=== PATIENT | female | born 1935 | race Caucasian/White ===

== ENCOUNTER 2021-10-05 11:33 | Inpatient (IN) | payer MEDICARE, OTHER ==
[2021-10-05] MEDS ORDERED: SODIUM CHLORIDE 0.9% 500 ML 500 ML IV STA (11:56)
[2021-10-05] MEDS ORDERED: SODIUM CHLORIDE 0.9% 1,000 ML IV STA (11:56)
--- NOTE | 2021-10-05 11:59 | ED ---
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 No other reports of any other injury or concerns at this time MD Complaint: fall - Related Data Previous Rx's Medication Instructions Recorded Nystatin 100,000 Unit/gm Powd 1 applic TOPICAL BID 7 Days applic 12/04/14 [Mycostatin Powder] diphenhydrAMINE [Benadryl] 25 mg PO TID PRN 7 Days cap 12/04/14 predniSONE [Deltasone] 20 mg PO DAILY 5 Days tab 12/04/14 Allergies Allergy/AdvReac Type Severity Reaction Status Date / Time piperacillin sodium Allergy Rash/Hives Verified 10/05/21 15:30 [From Zosyn] tazobactam sodium Allergy Rash/Hives Verified 10/05/21 15:30 [From Zosyn] Review of Systems ROS Statement: Those systems with pertinent positive or pertinent negative responses have been documented in the HPI. ROS Other: All systems not noted in ROS Statement are negative. Limitations: ROS unobtainable due to patients medical condition Past Medical History Past Medical History: Memory Impairment Additional Past Medical History / Comment(s): ULCERS WHEN YOUNGER, FELL LAST FR K[place]LAY HAS RT ELBOW PAIN/CONTUSION BRUISING RT EYE, OSTEOPENIA History of Any Multi-Drug Resistant Organisms: None Reported Additional Past Surgical History / Comment(s): Brain sx X2 POOR HX TO WHY SHE HAD SX- HAD TO RELEARN TO WALK AND TALK, GETS UP WITH CANE Past Anesthesia/Blood Transfusion Reactions: No Reported Reaction Past Psychological History: No Psychological Hx Reported Past Alcohol Use History: None Reported Past Drug Use History: None Reported - Past Family History Father Additional Family Medical History / Comment(s): KILLED IN A WAR Mother History Unknown: Yes General Exam - General Exam Comments Initial Comments: This a well-developed well-nourished awake alert pleasantly confused female Azcuena Coma Scale is 14 Limitations: no limitations General appearance: alert, in no apparent distress Head exam: Present: atraumatic, normocephalic, normal inspection Eye exam: Present: normal appearance, PERRL, EOMI. Absent: scleral icterus, conjunctival injection, periorbital swelling ENT exam: Present: mucous membranes dry Neck exam: Present: normal inspection, full ROM, other (No stridor JVD or bruits). Absent: tenderness, meningismus, lymphadenopathy Respiratory exam: Present: normal lung sounds bilaterally. Absent: respiratory distress, wheezes, rales, rhonchi, stridor Cardiovascular Exam: Present: regular rate, normal rhythm, normal heart sounds. Absent: systolic murmur, diastolic murmur, rubs, gallop, clicks GI/Abdominal exam: Present: soft, normal bowel sounds. Absent: distended, tenderness, guarding, rebound, rigid Extremities exam: Present: full ROM, normal capillary refill, other (Contracture noted to the right upper extremity tenderness palpation of the right hip with no shortening or rotation some tenderness palpation over the left knee evidence of old ecchymosis anteriorly. No deformity no step-off or crepitation.). Absent: tenderness, pedal edema, joint swelling, calf tenderness Back exam: Present: normal inspection Neurological exam: Present: alert, altered, motor sensory deficit. Absent: CN II-XII intact Psychiatric exam: Present: normal affect, normal mood Skin exam: Present: warm, dry, intact, normal color. Absent: rash Course Vital Signs 10/05/21 11:37 Temperature 98.9 F Pulse Rate 97 Respiratory 18 Rate Blood Pressure 135/74 O2 Sat by Pulse 94 L Oximetry Medical Decision Making - Medical Decision Making Patient denies any chest pain and reevaluation she does have elevated troponin and some evidence dehydration she will be admitted case was discussed with Dr. Avalos covering Dr. Nash - Lab Data Result diagrams: 10/05/21 12:10 10/05/21 12:10 Lab Results 10/05/21 10/05/21 10/05/21 Range/Units 12:10 12:10 12:10 WBC 9.6 (3.8-10.6) k/uL RBC 4.41 (3.80-5.40) m/uL Hgb 13.6 (11.4-16.0) gm/dL Hct 42.0 (34.0-46.0) % MCV 95.2 (80.0-100.0) fL MCH 30.8 (25.0-35.0) pg MCHC 32.3 (31.0-37.0) g/dL RDW 13.3 (11.5-15.5) % Plt Count 202 (150-450) k/uL MPV 9.5 Neutrophils % 86 % Lymphocytes % 7 % Monocytes % 4 % Eosinophils % 1 % Basophils % 1 % Neutrophils # 8.3 H (1.3-7.7) k/uL Lymphocytes # 0.7 L (1.0-4.8) k/uL Monocytes # 0.4 (0-1.0) k/uL Eosinophils # 0.1 (0-0.7) k/uL Basophils # 0.1 (0-0.2) k/uL Sodium 136 L (137-145) mmol/L Potassium 4.0 (3.5-5.1) mmol/L Chloride 102 (98-107) mmol/L Carbon Dioxide 27 (22-30) mmol/L Anion Gap 7 mmol/L BUN 16 (7-17) mg/dL Creatinine 0.49 L (0.52-1.04) mg/dL Est GFR (CKD-EPI)AfAm >90 (>60 ml/min/1.73 sqM) Est GFR (CKD-EPI)NonAf 89 (>60 ml/min/1.73 sqM) Glucose 121 H (74-99) mg/dL Calcium 9.3 (8.4-10.2) mg/dL Magnesium 1.6 (1.6-2.3) mg/dL Total Bilirubin 0.8 (0.2-1.3) mg/dL AST 30 (14-36) U/L ALT 18 (4-34) U/L Alkaline Phosphatase 44 (38-126) U/L Creatine Kinase 64 (30-135) U/L Troponin I 0.054 H* (0.000-0.034) ng/mL Total Protein 7.5 (6.3-8.2) g/dL Albumin 4.4 (3.5-5.0) g/dL Urine Color Urine Appearance (Clear) Urine pH (5.0-8.0) Ur Specific Frederica (1.001-1.035) Urine Protein (Negative) Urine Glucose (UA) (Negative) Urine Ketones (Negative) Urine Blood (Negative) Urine Nitrite (Negative) Urine Bilirubin (Negative) Urine Urobilinogen (<2.0) mg/dL Ur Leukocyte Esterase (Negative) Influenza Type A (PCR) (Not Detectd) Influenza Type B (PCR) (Not Detectd) RSV (PCR) (Not Detectd) SARS-CoV-2 (PCR) (Not Detectd) 10/05/21 10/05/21 Range/Units 12:10 12:34 WBC (3.8-10.6) k/uL RBC (3.80-5.40) m/uL Hgb (11.4-16.0) gm/dL Hct (34.0-46.0) % MCV (80.0-100.0) fL MCH (25.0-35.0) pg MCHC (31.0-37.0) g/dL RDW (11.5-15.5) % Plt Count (150-450) k/uL MPV Neutrophils % % Lymphocytes % % Monocytes % % Eosinophils % % Basophils % % Neutrophils # (1.3-7.7) k/uL Lymphocytes # (1.0-4.8) k/uL Monocytes # (0-1.0) k/uL Eosinophils # (0-0.7) k/uL Basophils # (0-0.2) k/uL Sodium (137-145) mmol/L Potassium (3.5-5.1) mmol/L Chloride (98-107) mmol/L Carbon Dioxide (22-30) mmol/L Anion Gap mmol/L BUN (7-17) mg/dL Creatinine (0.52-1.04) mg/dL Est GFR (CKD-EPI)AfAm (>60 ml/min/1.73 sqM) Est GFR (CKD-EPI)NonAf (>60 ml/min/1.73 sqM) Glucose (74-99) mg/dL Calcium (8.4-10.2) mg/dL Magnesium (1.6-2.3) mg/dL Total Bilirubin (0.2-1.3) mg/dL AST (14-36) U/L ALT (4-34) U/L Alkaline Phosphatase (38-126) U/L Creatine Kinase (30-135) U/L Troponin I (0.000-0.034) ng/mL Total Protein (6.3-8.2) g/dL Albumin (3.5-5.0) g/dL Urine Color Yellow Urine Appearance Clear (Clear) Urine pH 7.0 (5.0-8.0) Ur Specific Frederica 1.009 (1.001-1.035) Urine Protein Negative (Negative) Urine Glucose (UA) Negative (Negative) Urine Ketones Negative (Negative) Urine Blood Negative (Negative) Urine Nitrite Negative (Negative) Urine Bilirubin Negative (Negative) Urine Urobilinogen <2.0 (<2.0) mg/dL Ur Leukocyte Esterase Negative (Negative) Influenza Type A (PCR) Not Detected (Not Detectd) Influenza Type B (PCR) Not Detected (Not Detectd) RSV (PCR) Not Detected (Not Detectd) SARS-CoV-2 (PCR) Not Detected (Not Detectd) - EKG Data -: EKG Interpreted by Dc EKG shows normal: sinus rhythm EKG Comments: Sinus rhythm 84 AZ interval 158 QRS duration 86 QT since QTC 354/394 possible RV conduction delay - Radiology Data Radiology results: report reviewed (Imaging reviewed as well as report no acute processes), image reviewed Disposition Clinical Impression: Elevated troponin, Dehydration, Fall, Dementia Disposition: ADMITTED IP TO THIS [facility] Condition: Fair Referrals: Soledad Nash MD [Primary Care Provider] - 1-2 days Decision Date: 10/05/21 Decision Time: 15:30
[2021-10-05 12:20] LABS: Basophils # (A) 0.1 k/uL (0-0.2); Basophils % (A) 1 %; Eosinophils # (A) 0.1 k/uL (0-0.7); Eosinophils % (A) 1 %; HGB 13.6 gm/dL (11.4-16.0); Lymphocytes # (A) 0.7 k/uL (1.0-4.8); Lymphocytes % (A) 7 %; MCH 30.8 pg (25.0-35.0); MCHC 32.3 g/dL (31.0-37.0); MCV 95.2 fL (80.0-100.0); Mean Platelet Volume 9.5; Monocytes # (A) 0.4 k/uL (0-1.0); Monocytes % (A) 4 %; Neutrophils # (A) 8.3 k/uL (1.3-7.7); Neutrophils % (A) 86 %; Platelet Count 202 k/uL (150-450); RBC 4.41 m/uL (3.80-5.40); RDW 13.3 % (11.5-15.5); WBC 9.6 k/uL (3.8-10.6)
[2021-10-05 12:32] LABS: ALT 18 U/L (4-34); AST 30 U/L (14-36); African American GFR (CKD) >90 (>60 ml/min/1.73 sqM); Albumin 4.4 g/dL (3.5-5.0); Alkaline Phosphatase 44 U/L (38-126); Anion Gap 7 mmol/L; Blood Urea Nitrogen 16 mg/dL (7-17); Calcium 9.3 mg/dL (8.4-10.2); Carbon Dioxide 27 mmol/L (22-30); Chloride 102 mmol/L (98-107); Creatine Kinase 64 U/L (30-135); Glucose 121 mg/dL (74-99); Magnesium 1.6 mg/dL (1.6-2.3); Non-African American GFR(CKD) 89 (>60 ml/min/1.73 sqM); Sodium 136 mmol/L (137-145); Total Bilirubin 0.8 mg/dL (0.2-1.3); Total Protein 7.5 g/dL (6.3-8.2)
[2021-10-05 12:52] LABS: Appearance,Urine Clear (Clear); Bilirubin,Urine Negative (Negative); Blood,Urine Negative (Negative); Color,Urine Yellow; Glucose,Urine (UA) Negative (Negative); Ketones,Urine Negative (Negative); Leukocyte Esterase,Urine Negative (Negative); Nitrite,Urine Negative (Negative); Protein,Urine Negative (Negative); Specific Gravity,Urine 1.009 (1.001-1.035); Urobilinogen,Urine <2.0 mg/dL (<2.0)
--- NOTE | 2021-10-05 14:07 | XR ---
EXAMINATION TYPE: XR pelvis AP view DATE OF EXAM: 10/05/2021 1:32 PM INDICATION: Patient age:Female; 86 years old; Reason for study: Fall; COMPARISON: None TECHNIQUE: The pelvis was examined in a single projection. FINDINGS: There is no evidence of fracture or dislocation. There is no soft tissue abnormality. No a bnormal calcifications are present. Disc degeneration changes throughout the spine dextroscoliosis ap ex at L4. Sludge-filled burden throughout the colon. IMPRESSION: No acute osseous pathology.
--- NOTE | 2021-10-05 14:08 | XR ---
EXAMINATION TYPE: XR chest 2V DATE OF EXAM: 10/05/2021 1:32 PM COMPARISON: Chest radiographs from 11/28/2014 TECHNIQUE: XR chest 2V Frontal and lateral views of the chest. CLINICAL INDICATION:Female, 86 years old with history of Weakness; FINDINGS: Patient is rotated. Lungs/Pleura: There is no evidence of pleural effusion, focal consolidation, or pneumothorax. Pulmonary vascularity: Unremarkable. Heart/mediastinum: Cardiomediastinal silhouette is prominent in size. Musculoskeletal: No acute osseous pathology. IMPRESSION: No acute cardiopulmonary disease/process in patient rotation.
--- NOTE | 2021-10-05 14:08 | XR ---
EXAMINATION TYPE: XR knee complete LT DATE OF EXAM: 10/05/2021 1:32 PM INDICATION: Patient age:Female; 86 years old; Reason for study: Fall with pain; COMPARISON: None. TECHNIQUE: The Left knee(s) was examined in 3 projections. FINDINGS: No evidence of any acute osseous pathology, joint space narrowing, soft tissue swelling. There is small joint effusion. Mild spurring of the tibial plateau. IMPRESSION: 1. No acute osseous pathology. 2. Mild tricompartmental osteoarthritic changes. 3. Small joint effusion.
[2021-10-05] MEDS ORDERED: NALOXONE 0.4 MG/ML 1 ML VIAL IV PRN (15:37)
[2021-10-05] MEDS ORDERED: MAGNESIUM HYDROXIDE 2,400 MG/10 ML CUP PO PRN (15:39)
[2021-10-05] MEDS ORDERED: bisacodyL 10 MG SUPP RECTAL PRN (15:39)
[2021-10-05] MEDS ORDERED: NA PHOS,M-B/NA PHOS,DI-BA 133 ML ENEMA RECTAL PRN (15:39)
[2021-10-05] MEDS ORDERED: LORazepam 2 MG/ML INJ IV STA (16:47)
[2021-10-05] MEDS: SODIUM CHLORIDE 0.9% 1,000 ML IV SCH (17:16)
--- NOTE | 2021-10-05 20:26 | HP ---
HISTORY AND PHYSICAL CHIEF COMPLAINT: Fall and weakness. HISTORY OF PRESENT ILLNESS: This 86-year-old woman with a past medical history of multiple medical problems and memory impairment, history of nicotine dependence, history of dementia, resides in [facility], was taken to [facility] with complaints of weakness, fall and as well as dehydration. The patient is unable to communicate. Troponin is found to be slightly elevated and patient admitted to the hospital for further evaluation and treatment. There is no history of fever, rigors or chills. PAST MEDICAL HISTORY: Dementia. HOME MEDICATIONS: Prior to admission reviewed and include: Milk of magnesia, doses and other medications reviewed. ALLERGIES: Include ZOSYN. FAMILY HISTORY: No history of heart disease or strokes in the family. Social history, review of systems could not be taken because of change in mental status. PHYSICAL EXAM: Patient is stuporous. Pulse is 91, blood pressure 152/60, respiration 20. HEENT: Conjunctivae normal. NECK: No JVD. CARDIOVASCULAR: S1, S2 normal. RESPIRATION: Breath sounds diminished in the bases. Oral mucosa dry. ABDOMEN: Soft, nontender. NERVOUS SYSTEM: Contractures could not be examined. SKIN: No ulcers, rashes or bleeding. JOINTS: No active deforming arthropathy. LABS: Sodium 136. ASSESSMENT: 1. Dehydration, change in mental status. 2. History of fall. 3. Troponin 0.05 indeterminate, rule out myocardial infarction. 4. Dementia. 5. FULL CODE. RECOMMENDATIONS AND DISCUSSION: This 86-year-old woman who presented with multiple complex medical issues, we will monitor the patient closely. I would recommend continue the current medications. Cardiology has been consulted. Continue IV fluids. Repeat labs. DVT prophylaxis. Repeat teagan and Dr. Nash will follow tomorrow. MMODL / IJN: [id number] /
[2021-10-05] MEDS: HEPARIN SODIUM,PORCINE/PF 5,000 UNIT/0.5 ML SYRINGE SQ SCH (20:59)
[2021-10-05] MEDS: traMADol 50 MG TAB PO SCH (21:00)
[2021-10-05] MEDS: CALCIUM CARBONATE 500 MG CHEWABLE PO SCH (21:02)
[2021-10-05] MEDS: ACETAMINOPHEN TAB 325 MG TAB PO SCH (21:02)
[2021-10-05] MEDS: CLOTRIMAZOLE 1% CREAM 30 GM TUBE TOPICAL SCH (22:38)
[2021-10-06 07:27] LABS: African American GFR (CKD) >90 (>60 ml/min/1.73 sqM); Anion Gap 9 mmol/L; Blood Urea Nitrogen 10 mg/dL (7-17); Calcium 8.7 mg/dL (8.4-10.2); Carbon Dioxide 22 mmol/L (22-30); Chloride 106 mmol/L (98-107); Glucose 100 mg/dL (74-99); Non-African American GFR(CKD) >90 (>60 ml/min/1.73 sqM); Potassium 3.7 mmol/L (3.5-5.1); Sodium 137 mmol/L (137-145)
[2021-10-06 07:50] LABS: Basophils # (A) 0.1 k/uL (0-0.2); Basophils % (A) 1 %; Eosinophils # (A) 0.2 k/uL (0-0.7); Eosinophils % (A) 2 %; HCT 43.3 % (34.0-46.0); HGB 13.6 gm/dL (11.4-16.0); Lymphocytes # (A) 0.8 k/uL (1.0-4.8); Lymphocytes % (A) 10 %; MCH 30.5 pg (25.0-35.0); MCHC 31.3 g/dL (31.0-37.0); MCV 97.5 fL (80.0-100.0); Mean Platelet Volume 9.7; Monocytes # (A) 0.4 k/uL (0-1.0); Monocytes % (A) 4 %; Neutrophils # (A) 6.8 k/uL (1.3-7.7); Neutrophils % (A) 81 %; Platelet Count 185 k/uL (150-450); RBC 4.45 m/uL (3.80-5.40); RDW 13.3 % (11.5-15.5); WBC 8.3 k/uL (3.8-10.6)
[2021-10-06] MEDS: SODIUM CHLORIDE 0.9% 1,000 ML IV SCH (11:05)
[2021-10-06] MEDS: CHOLECALCIFEROL 25 MCG (1000 IU) TABLET PO SCH (12:07)
[2021-10-06] MEDS: HEPARIN SODIUM,PORCINE/PF 5,000 UNIT/0.5 ML SYRINGE SQ SCH ×2 (12:07→20:24)
[2021-10-06] MEDS: CLOTRIMAZOLE 1% CREAM 30 GM TUBE TOPICAL SCH ×2 (12:07→18:39)
[2021-10-06] MEDS: traMADol 50 MG TAB PO SCH ×2 (12:07→20:22)
--- NOTE | 2021-10-06 12:22 | P.PN ---
Subjective Progress Note Date: 10/06/21 Principal diagnosis: Fall elevated troponin I am resuming care of patient on 10/06/2021 This 86-year-old female patient who initially presented to ER after sustaining a fall at [facility] facility where resides. Patient does have a past medical history of dementia, previous nicotine dependence and vitamin D deficiency. Upon arrival to ER patient was found to have elevated troponins and was admitted for further evaluation and cardiology consult On 10/06/2021 patient is alert and oriented 3 currently resting comfortably in bed. UA was negative. COVID-19 negative. Troponin 0.054, 0.046 and 0.044. Cardiology services have been consulted 2-D echo has been ordered. At this time patient denies chest pain or shortness breath. Patient denies nausea vomiting or diarrhea. Patient denies any urinary burning or frequency Objective - Vital Signs Vital signs: Vital Signs Temp 99.4 F 10/05/21 20:00 Pulse 85 10/06/21 04:00 Resp 17 10/06/21 04:00 BP 129/64 10/06/21 04:00 Pulse Ox 96 10/06/21 04:00 Intake & Output 10/05/21 10/06/21 10/06/21 18:59 06:59 18:59 Output Total 400 Balance -400 Weight 58.967 kg Output: Urine 400 Other: Voiding Method Diaper # Voids 1 - Exam Head normocephalic Neck supple Lungs clear to auscultation bilaterally no wheezing or crackles Heart regular rate and rhythm S1-S2, no rub or gallop Abdomen is soft nontender nondistended positive bowel sounds no hepatosplenomegaly Extremities no edema Neuro alert and orientated to 3. Intermittent confusion known dementia - Labs CBC & Chem 7: 10/06/21 06:00 10/06/21 06:00 Labs: Abnormal Lab Results - Last 24 Hours (Table) 10/05/21 10/05/21 10/05/21 Range/Units 12:10 12:10 12:10 Neutrophils # 8.3 H (1.3-7.7) k/uL Lymphocytes # 0.7 L (1.0-4.8) k/uL Sodium 136 L (137-145) mmol/L Creatinine 0.49 L (0.52-1.04) mg/dL Glucose 121 H (74-99) mg/dL Troponin I 0.054 H* (0.000-0.034) ng/mL 10/05/21 10/05/21 10/06/21 Range/Units 16:54 21:00 06:00 Neutrophils # (1.3-7.7) k/uL Lymphocytes # 0.8 L (1.0-4.8) k/uL Sodium (137-145) mmol/L Creatinine (0.52-1.04) mg/dL Glucose (74-99) mg/dL Troponin I 0.046 H* 0.044 H* (0.000-0.034) ng/mL 10/06/21 Range/Units 06:00 Neutrophils # (1.3-7.7) k/uL Lymphocytes # (1.0-4.8) k/uL Sodium (137-145) mmol/L Creatinine 0.34 L (0.52-1.04) mg/dL Glucose 100 H (74-99) mg/dL Troponin I (0.000-0.034) ng/mL Assessment and Plan Assessment: 1. Status post fall without syncope. Knee x-ray completed and negative for fracture. Pelvis x-ray completed and negative for fracture. 2. Elevated troponins. Cardiology service is consulted 2-D echo ordered 3. Dehydration. Continue IV fluid repeat labs ordered 4. History of falls 5. History of dementia DVT prophylaxis heparin GI prophylaxis Pepcid Cardiology services consulted Continue IV fluid 2-D echo ordered
--- NOTE | 2021-10-06 12:44 | P.CRDCN ---
History of Present Illness Consult date: 10/06/21 History of present illness: HISTORY OF PRESENT ILLNESS: This is a 86-year-old female with a past medical history significant for CVA and dementia. Patient does not follow with a career services director. We have been asked to see the patient in consultation for abnormal troponins. Patient examined at the bedside. Patient presented from [facility] secondary to weakness and a fall. Patient denies any chest pain or pressure. She denies any shortness of breath. She denies any dizziness or lightheadedness. No syncopal episodes. Vital signs are stable. Telemetry reveals sinus mechanism. * EKG reveals sinus mechanism with no signs of acute ischemia * Chest xray negative for acute process * Laboratory data: WBC 8.3. Hemoglobin 13.6. Platelet count 185. Sodium 137. Potassium 3.7. BUN 10. Creatinine 0.34. Troponin 0.054. 0.046. 0.044. * Current home cardiac medications include none REVIEW OF SYSTEMS: At the time of my exam: CONSTITUTIONAL: Denies fever or chills. HEENT: Denies blurred vision, vision changes, or eye pain. Denies hemoptysis CARDIOVASCULAR: Denies chest pain. Denies orthopnea. Denies PND. Denies palpitations RESPIRATORY: Denies shortness of breath. GASTROINTESTINAL: Denies abdominal pain. Denies nausea or vomiting. HEMATOLOGIC: Denies bleeding disorders. GENITOURINARY: Denies any blood in urine. SKIN: Denies pruitis. Denies rash. PHYSICAL EXAM: VITAL SIGNS: Reviewed. GENERAL: Well-developed in no acute distress. HEENT: Head is normocephalic. Pupils are equal, round. Sclerae anicteric. Mucous membranes of the mouth are moist. Neck supple. No JVD or thyromegaly LUNGS: Respirations even and unlabored. Lungs essentially clear to auscultation bilaterally. HEART: Regular rate and rhythm. S1 and S2 heard. ABDOMEN: Soft. Nondistended. Nontender. EXTREMITIES: Normal range of motion. No clubbing or cyanosis. Peripheral pulses intact. No lower extremity edema NEUROLOGIC: Awake and alert. ASSESSMENT: Status post fall Abnormal troponins of unclear significance, flat, not suggestive of acute coronary syndrome History of CVA with residual right-sided weakness History of dementia PLAN: Acute coronary event has been ruled out Obtain 2-D echo to assess cardiac structure and function If 2D echo does not reveal any acute abnormalities, no further cardiac workup will be recommended Nurse practitioner note has been reviewed by physician. Signing provider agrees with the documented findings, assessment, and plan of care. Past Medical History Past Medical History: CVA/TIA, Dementia, Eye Disorder, Hyperlipidemia, Memory Impairment, Skin Disorder Additional Past Medical History / Comment(s): CVA, R hand "stiffness", chronic low back pain, osteoporosis, vitamin D deficiency, +CIELO/pt refused rheumatology referral, chronic constipation, muscle weakness, FALLS, xerosis cutis, past R lower extremity cellulitis. History of Any Multi-Drug Resistant Organisms: None Reported Additional Past Surgical History / Comment(s): Brain surgery x2-pt unable to provide details. Past Anesthesia/Blood Transfusion Reactions: No Reported Reaction Smoking Status: Former smoker - Past Family History Father Additional Family Medical History / Comment(s): KILLED IN A WAR Mother History Unknown: Yes Medications and Allergies Home Medications Medication Instructions Recorded Confirmed Type Acetaminophen [Tylenol Arthritis] 650 mg PO HS 10/05/21 10/05/21 History Calcium Carbonate [Calcium] 600 mg PO HS 10/05/21 10/05/21 History Cholecalciferol [Vitamin D3 (25 50 mcg PO DAILY 10/05/21 10/05/21 History Mcg = 1000 Iu)] Ketoconazole 2% Cream [Nizoral 2%] 1 applic TOPICAL BID@0800,1600 10/05/21 10/05/21 History Magnesium Hydroxide [Milk of 2,400 mg PO Q72H PRN 10/05/21 10/05/21 History Magnesia] Na Phos,M-B/Na Phos,Di-Ba [Fleet 133 ml RECTAL DAILY PRN 10/05/21 10/05/21 History Adult] bisacodyL [Dulcolax] 10 mg RECTAL HS PRN 10/05/21 10/05/21 History traMADol HCL [Ultram] 50 mg PO BID 10/05/21 10/05/21 History Allergies Allergy/AdvReac Type Severity Reaction Status Date / Time piperacillin sodium Allergy Rash/Hives Verified 10/05/21 15:30 [From Zosyn] tazobactam sodium Allergy Rash/Hives Verified 10/05/21 15:30 [From Zosyn] Physical Exam Vitals: Vital Signs Temp Pulse Pulse Resp BP BP Pulse Ox 10/06/21 11:19 89 20 112/82 91 L 10/06/21 04:00 85 17 129/64 96 10/06/21 00:00 82 16 122/60 97 10/05/21 20:00 99.4 F 93 24 125/62 94 L 10/05/21 17:14 91 20 152/68 94 L Intake and Output 10/05/21 10/06/21 10/06/21 22:59 06:59 14:59 Output Total 400 Balance -400 Output: Urine 400 Other: Voiding Method Diaper Diaper # Voids 1 Weight 58.967 kg Results 10/06/21 06:00 10/06/21 06:00 Cardiac Enzymes 10/05/21 10/05/21 10/05/21 Range/Units 12:10 16:54 21:00 Troponin I 0.054 H* 0.046 H* 0.044 H* (0.000-0.034) ng/mL CBC 10/06/21 Range/Units 06:00 WBC 8.3 (3.8-10.6) k/uL RBC 4.45 (3.80-5.40) m/uL Hgb 13.6 (11.4-16.0) gm/dL Hct 43.3 (34.0-46.0) % Plt Count 185 (150-450) k/uL Comprehensive Metabolic Panel 10/06/21 Range/Units 06:00 Sodium 137 (137-145) mmol/L Potassium 3.7 (3.5-5.1) mmol/L Chloride 106 (98-107) mmol/L Carbon Dioxide 22 (22-30) mmol/L BUN 10 (7-17) mg/dL Creatinine 0.34 L (0.52-1.04) mg/dL Glucose 100 H (74-99) mg/dL Calcium 8.7 (8.4-10.2) mg/dL Current Medications Generic Name Dose Route Start Last Admin Trade Name Freq PRN Reason Stop Dose Admin Acetaminophen 650 mg 10/05/21 21:00 10/05/21 21:02 Acetaminophen Tab 325 Mg Tab PO 650 mg HS LENNY Administration Bisacodyl 10 mg 10/05/21 15:39 Bisacodyl 10 Mg Supp RECTAL HS PRN Constipation Calcium Carbonate/Glycine 500 mg 10/05/21 21:00 10/05/21 21:02 Calcium Carbonate 500 Mg Chewable PO 500 mg HS LENNY Administration Cholecalciferol 50 mcg 10/06/21 09:00 10/06/21 12:07 Cholecalciferol 25 Mcg (1000 Iu) Tablet PO Not Given DAILY [facility] Clotrimazole 1 applic 10/05/21 21:00 10/06/21 12:07 Clotrimazole 1% Cream 30 Gm Tube TOPICAL Not Given BID@0800,1600 [facility] Famotidine 20 mg 10/07/21 09:00 Famotidine 20 Mg Tab PO DAILY [facility] Heparin Sodium (Porcine) 5,000 unit 10/05/21 21:00 10/06/21 12:07 Heparin Sodium,Porcine/Pf 5,000 Unit/0.5 Ml Syringe SQ Not Given Q12HR [facility] Sodium Chloride 1,000 mls @ 75 mls/hr 10/05/21 15:45 10/06/21 11:05 Saline 0.9% IV Not Given .[id number] [facility] Magnesium Hydroxide 2,400 mg 10/05/21 15:39 Magnesium Hydroxide 2,400 Mg/10 Ml Cup PO Q72H PRN Constipation Naloxone HCl 0.2 mg 10/05/21 15:37 Naloxone 0.4 Mg/Ml 1 Ml Vial IV Q2M PRN Opioid Reversal Sodium Biphosphate/Sodium Phosphate 133 ml 10/05/21 15:39 Na Phos,M-B/Na Phos,Di-Ba 133 Ml Enema RECTAL DAILY PRN Constipation Tramadol HCl 50 mg 10/05/21 21:00 10/06/21 12:07 Tramadol 50 Mg Tab PO Not Given BID [facility] Intake and Output 10/05/21 10/06/21 10/06/21 22:59 06:59 14:59 Output Total 400 Balance -400 Output: Urine 400 Other: Voiding Method Diaper Diaper # Voids 1 Weight 58.967 kg Patient Weight 10/07/21 06:59 Weight 58.967 kg 10/06/21 06:00 10/06/21 06:00
[2021-10-06] MEDS: ACETAMINOPHEN TAB 325 MG TAB PO SCH (20:23)
[2021-10-06] MEDS: CALCIUM CARBONATE 500 MG CHEWABLE PO SCH (20:24)
[2021-10-07] MEDS: SODIUM CHLORIDE 0.9% 1,000 ML IV SCH ×3 (01:00→21:10)
[2021-10-07 08:59] LABS: Basophils % (A) 1 %; Eosinophils # (A) 0.4 k/uL (0-0.7); Eosinophils % (A) 5 %; HCT 39.8 % (34.0-46.0); HGB 12.4 gm/dL (11.4-16.0); Lymphocytes # (A) 0.8 k/uL (1.0-4.8); Lymphocytes % (A) 12 %; MCH 30.7 pg (25.0-35.0); MCHC 31.2 g/dL (31.0-37.0); MCV 98.6 fL (80.0-100.0); Mean Platelet Volume 9.8; Monocytes # (A) 0.4 k/uL (0-1.0); Monocytes % (A) 5 %; Neutrophils # (A) 5.3 k/uL (1.3-7.7); Neutrophils % (A) 76 %; Platelet Count 161 k/uL (150-450); RBC 4.04 m/uL (3.80-5.40); RDW 13.3 % (11.5-15.5)
[2021-10-07 09:12] LABS: ALT 11 U/L (4-34); AST 23 U/L (14-36); African American GFR (CKD) >90 (>60 ml/min/1.73 sqM); Albumin 3.4 g/dL (3.5-5.0); Alkaline Phosphatase 41 U/L (38-126); Anion Gap 7 mmol/L; Blood Urea Nitrogen 7 mg/dL (7-17); Calcium 8.4 mg/dL (8.4-10.2); Carbon Dioxide 24 mmol/L (22-30); Chloride 106 mmol/L (98-107); Glucose 108 mg/dL (74-99); Non-African American GFR(CKD) >90 (>60 ml/min/1.73 sqM); Potassium 3.7 mmol/L (3.5-5.1); Sodium 137 mmol/L (137-145); Total Bilirubin 0.8 mg/dL (0.2-1.3); Total Protein 6.5 g/dL (6.3-8.2)
[2021-10-07] MEDS: HEPARIN SODIUM,PORCINE/PF 5,000 UNIT/0.5 ML SYRINGE SQ SCH ×2 (09:45→20:16)
[2021-10-07] MEDS: CHOLECALCIFEROL 25 MCG (1000 IU) TABLET PO SCH (09:45)
[2021-10-07] MEDS: FAMOTIDINE 20 MG TAB PO SCH (09:45)
[2021-10-07] MEDS: traMADol 50 MG TAB PO SCH ×2 (09:45→20:17)
[2021-10-07] MEDS: CLOTRIMAZOLE 1% CREAM 30 GM TUBE TOPICAL SCH ×2 (09:48→18:27)
--- NOTE | 2021-10-07 11:58 | P.PN ---
Subjective Progress Note Date: 10/07/21 HISTORY OF PRESENT ILLNESS: This is a 86-year-old female with a past medical history significant for CVA and dementia. 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 We have been asked to see the patient in consultation for abnormal troponins. Patient examined at the bedside. Patient presented from [facility] secondary to weakness and a fall. Patient denies any chest pain or pressure. She denies any shortness of breath. She denies any dizziness or lightheadedness. No syncopal episodes. Vital signs are stable. Telemetry reveals sinus mechanism. * EKG reveals sinus mechanism with no signs of acute ischemia * Chest xray negative for acute process * Laboratory data: WBC 8.3. Hemoglobin 13.6. Platelet count 185. Sodium 137. Potassium 3.7. BUN 10. Creatinine 0.34. Troponin 0.054. 0.046. 0.044. * Current home cardiac medications include none 10/07/2021 Patient examined this morning at the bedside. Patient denies chest pain or pressure. She denies shortness of breath. Vital signs are stable. PHYSICAL EXAM: VITAL SIGNS: Reviewed. GENERAL: Well-developed in no acute distress. HEENT: Head is normocephalic. Pupils are equal, round. Sclerae anicteric. Mucous membranes of the mouth are moist. Neck supple. No JVD or thyromegaly LUNGS: Respirations even and unlabored. Lungs essentially clear to auscultation bilaterally. HEART: Regular rate and rhythm. S1 and S2 heard. ABDOMEN: Soft. Nondistended. Nontender. EXTREMITIES: Normal range of motion. No clubbing or cyanosis. Peripheral pulses intact. No lower extremity edema NEUROLOGIC: Awake and alert. ASSESSMENT: Status post fall Abnormal troponins of unclear significance, flat, not suggestive of acute coronary syndrome History of CVA with residual right-sided weakness History of dementia PLAN: An acute coronary event has been ruled out Obtain 2-D echo to assess cardiac structure and function If 2D echo does not reveal any acute abnormalities, no further cardiac workup will be recommended Nurse practitioner note has been reviewed by physician. Signing provider agrees with the documented findings, assessment, and plan of care. Objective - Vital Signs Vital signs: Vital Signs Temp 98.6 F 10/07/21 08:00 Pulse 98 10/07/21 08:00 Resp 18 04/26/22 08:00 BP 133/59 10/07/21 08:00 Pulse Ox 98 10/07/21 08:00 Intake & Output 10/06/21 10/07/21 10/07/21 18:59 06:59 18:59 Intake Total 240 240 Output Total 300 Balance -60 240 Weight 58.967 kg Intake: Oral 240 240 Output: Urine 300 Other: Voiding Method Diaper Diaper Diaper # Voids 1 2 - Labs CBC & Chem 7: 10/07/21 08:04 10/07/21 08:04 Labs: Abnormal Lab Results - Last 24 Hours (Table) 10/07/21 10/07/21 Range/Units 08:04 08:04 Lymphocytes # 0.8 L (1.0-4.8) k/uL Creatinine 0.41 L (0.52-1.04) mg/dL Glucose 108 H (74-99) mg/dL Albumin 3.4 L (3.5-5.0) g/dL
--- NOTE | 2021-10-07 17:46 | CA ---
Transthoracic Echo Report Name: Kaia Chowdhury Age: 86 Gender: F : 1935 Exam Date: 10/06/2021 14:32 Exam Location: [facility] Ht (in): 65 Wt (lb): 130 Ordering Physician: Jovana Gan Attending/Referring Phys: [id number], Malik [employer] Megan Salazar RDCS Procedure CPT: Indications: LV function, abnormal troponins Cardiac Hx: Technical Quality: Fair Contrast 1: Total Dose (mL): Contrast 2: Total Dose (mL): MEASUREMENTS (Male / Female) Normal Values FINDINGS Left Ventricle Limited study, patient is noncompliant. Left ventricular ejection fraction is estimated at 50-55 %. Right Ventricle Right ventricle not well visualized. Right Atrium Right atrium not well visualized. Left Atrium Left atrium not well visualized. Mitral Valve Mild mitral regurgitation. Aortic Valve Aortic valve not well visualized. Tricuspid Valve Tricuspid valve not well visualized. Pulmonic Valve Not visualized Pericardium No pericardial or pleural effusion. Aorta Not visualized CONCLUSIONS Limited study. Patient was not cooperative. Grossly LV size and systolic function appears to be in the normal range. No further information is available Previewed by: Dr. Nina Sharp MD (Electronically Signed) Final Date: 07 October 2021 17:45
--- NOTE | 2021-10-07 19:10 | P.PN ---
Subjective Progress Note Date: 10/07/21 Principal diagnosis: Fall elevated troponin I am resuming care of patient on 10/06/2021 This 86-year-old female patient who initially presented to ER after sustaining a fall at [facility] facility where resides. Patient does have a past medical history of dementia, previous nicotine dependence and vitamin D deficiency. Upon arrival to ER patient was found to have elevated troponins and was admitted for further evaluation and cardiology consult On 10/06/2021 patient is alert and oriented 3 currently resting comfortably in bed. UA was negative. COVID-19 negative. Troponin 0.054, 0.046 and 0.044. Cardiology services have been consulted 2-D echo has been ordered. At this time patient denies chest pain or shortness breath. Patient denies nausea vomiting or diarrhea. Patient denies any urinary burning or frequency. On 10/07/2021 patient was seen and examined on the medical floor she is alert and oriented 3 in no apparent distress there is no fever or chills no headache or dizziness no chest pain no shortness of breath no cough no nausea or vomiting no abdominal pain no diarrhea and no urinary symptoms, patient sustained a fall at the group home was possible head trauma, she was transferred to emergency room she was found to have elevated troponin levels, she was admitted to telemetry floor and cardiology consultation was requested, echocardiogram ordered results are still pending, if stable possible transfer back to the [facility] tomorrow Objective - Vital Signs Vital signs: Vital Signs Temp 98.6 F 10/07/21 08:00 Pulse 98 10/07/21 08:00 Resp 18 10/07/21 08:00 BP 133/59 10/07/21 08:00 Pulse Ox 98 10/07/21 08:00 Intake & Output 10/06/21 10/07/21 10/07/21 18:59 06:59 18:59 Intake Total 240 240 Output Total 300 Balance -60 240 Weight 58.967 kg Intake: Oral 240 240 Output: Urine 300 Other: Voiding Method Diaper Diaper Diaper # Voids 1 2 - Exam Head normocephalic Neck supple Lungs clear to auscultation bilaterally no wheezing or crackles Heart regular rate and rhythm S1-S2, no rub or gallop Abdomen is soft nontender nondistended positive bowel sounds no hepatosplenomegaly Extremities no edema Neuro alert and orientated to 3. Intermittent confusion known dementia - Labs CBC & Chem 7: 10/07/21 08:04 10/07/21 08:04 Labs: Abnormal Lab Results - Last 24 Hours (Table) 10/07/21 10/07/21 Range/Units 08:04 08:04 Lymphocytes # 0.8 L (1.0-4.8) k/uL Creatinine 0.41 L (0.52-1.04) mg/dL Glucose 108 H (74-99) mg/dL Albumin 3.4 L (3.5-5.0) g/dL Assessment and Plan Assessment: 1. Status post fall without syncope. Knee x-ray completed and negative for fracture. Pelvis x-ray completed and negative for fracture. 2. Elevated troponins. Cardiology service is consulted 2-D echo ordered 3. Dehydration. Continue IV fluid repeat labs ordered 4. History of falls 5. History of dementia DVT prophylaxis heparin GI prophylaxis Pepcid Cardiology services consulted Continue IV fluid 2-D echo ordered
[2021-10-07] MEDS: ACETAMINOPHEN TAB 325 MG TAB PO SCH (20:16)
[2021-10-07] MEDS: CALCIUM CARBONATE 500 MG CHEWABLE PO SCH (20:16)
[2021-10-08] MEDS: traMADol 50 MG TAB PO SCH (09:02)
[2021-10-08] MEDS: FAMOTIDINE 20 MG TAB PO SCH (09:02)
[2021-10-08] MEDS: CHOLECALCIFEROL 25 MCG (1000 IU) TABLET PO SCH (09:02)
[2021-10-08] MEDS: CLOTRIMAZOLE 1% CREAM 30 GM TUBE TOPICAL SCH (09:03)
[2021-10-08] MEDS: HEPARIN SODIUM,PORCINE/PF 5,000 UNIT/0.5 ML SYRINGE SQ SCH (09:03)
[2021-10-08 09:21] LABS: Basophils % (A) 0 %; Eosinophils # (A) 0.4 k/uL (0-0.7); Eosinophils % (A) 5 %; HCT 41.4 % (34.0-46.0); Lymphocytes % (A) 15 %; MCH 31.2 pg (25.0-35.0); MCHC 31.5 g/dL (31.0-37.0); MCV 98.9 fL (80.0-100.0); Mean Platelet Volume 8.8; Monocytes # (A) 0.3 k/uL (0-1.0); Monocytes % (A) 4 %; Neutrophils # (A) 4.9 k/uL (1.3-7.7); Neutrophils % (A) 73 %; Platelet Count 184 k/uL (150-450); RBC 4.19 m/uL (3.80-5.40); RDW 13.3 % (11.5-15.5); WBC 6.7 k/uL (3.8-10.6)
[2021-10-08 09:27] LABS: ALT 11 U/L (4-34); AST 20 U/L (14-36); African American GFR (CKD) >90 (>60 ml/min/1.73 sqM); Albumin 3.5 g/dL (3.5-5.0); Alkaline Phosphatase 40 U/L (38-126); Anion Gap 4 mmol/L; Blood Urea Nitrogen 5 mg/dL (7-17); Calcium 8.5 mg/dL (8.4-10.2); Carbon Dioxide 29 mmol/L (22-30); Chloride 106 mmol/L (98-107); Glucose 179 mg/dL (74-99); Non-African American GFR(CKD) >90 (>60 ml/min/1.73 sqM); Potassium 3.6 mmol/L (3.5-5.1); Sodium 139 mmol/L (137-145); Total Bilirubin 0.6 mg/dL (0.2-1.3); Total Protein 6.3 g/dL (6.3-8.2)
--- NOTE | 2021-10-08 11:37 | P.DS ---
Providers Date of admission: 10/05/21 15:38 Expected date of discharge: 10/08/21 Attending physician: Soledad Nash Primary care physician: Soledad Nash [facility] Course: Discharge diagnosis 1. Status post fall without syncope. Knee x-ray completed and negative for fracture. Pelvis x-ray completed and negative for fracture. 2. Elevated troponins. Cardiology service is consulted 2-D echo ordered 3. Dehydration. Continue IV fluid repeat labs ordered 4. History of falls 5. History of dementia Hospital course This 86-year-old female patient who initially presented to ER after sustaining a fall at [facility] facility where resides. Patient does have a past medical history of dementia, previous nicotine dependence and vitamin D deficiency. Upon arrival to ER patient was found to have elevated troponins and was admitted for further evaluation and cardiology consult On 10/06/2021 patient is alert and oriented 3 currently resting comfortably in bed. UA was negative. COVID-19 negative. Troponin 0.054, 0.046 and 0.044. Cardiology services have been consulted 2-D echo has been ordered. At this time patient denies chest pain or shortness breath. Patient denies nausea vomiting or diarrhea. Patient denies any urinary burning or frequency. On 10/07/2021 patient was seen and examined on the medical floor she is alert and oriented 3 in no apparent distress there is no fever or chills no headache or dizziness no chest pain no shortness of breath no cough no nausea or vomiting no abdominal pain no diarrhea and no urinary symptoms, patient sustained a fall at the shelter was possible head trauma, she was transferred to emergency room she was found to have elevated troponin levels, she was admitted to telemetry floor and cardiology consultation was requested, echocardiogram ordered results are still pending, if stable possible transfer back to the shelter tomorrow On 10/08/2021 patient is alert and oriented 3 resting comfortably in bed. 2-D echo completed showing an EF of 50-55%. Patient will be discharged back to [facility] facility. At this time patient denies chest pain or shortness breath. Patient denies nausea vomiting or diarrhea. Patient denies any urinary burning or frequency Patient Condition at Discharge: Stable Plan - Discharge Summary Discharge Rx Participant: Yes New Discharge Prescriptions: Continue Magnesium Hydroxide [Milk of Magnesia] 2,400 mg PO Q72H PRN PRN Reason: Constipation Na Phos,M-B/Na Phos,Di-Ba [Fleet Adult] 133 ml RECTAL DAILY PRN PRN Reason: Constipation bisacodyL [Dulcolax] 10 mg RECTAL HS PRN PRN Reason: Constipation Ketoconazole 2% Cream [Nizoral 2%] 1 applic TOPICAL BID@0800,1600 Cholecalciferol [Vitamin D3 (25 Mcg = 1000 Iu)] 50 mcg PO DAILY Calcium Carbonate [Calcium] 600 mg PO HS Acetaminophen [Tylenol Arthritis] 650 mg PO HS No Action traMADol HCL [Ultram] 50 mg PO BID Discharge Medication List Acetaminophen [Tylenol Arthritis] 650 mg PO HS 10/05/21 [History] Calcium Carbonate [Calcium] 600 mg PO HS 10/05/21 [History] Cholecalciferol [Vitamin D3 (25 Mcg = 1000 Iu)] 50 mcg PO DAILY 10/05/21 [History] Ketoconazole 2% Cream [Nizoral 2%] 1 applic TOPICAL BID@0800,1600 10/05/21 [History] Magnesium Hydroxide [Milk of Magnesia] 2,400 mg PO Q72H PRN 10/05/21 [History] Na Phos,M-B/Na Phos,Di-Ba [Fleet Adult] 133 ml RECTAL DAILY PRN 10/05/21 [History] bisacodyL [Dulcolax] 10 mg RECTAL HS PRN 10/05/21 [History] traMADol HCL [Ultram] 50 mg PO BID 10/05/21 [History] Follow up Appointment(s)/Referral(s): Soledad Nash MD [Primary Care Provider] - 1-2 days Activity/Diet/Wound Care/Special Instructions: Activity as tolerated Diet heart healthy
[2021-10-08 13:44] VITALS: BP 140/64; PULSE 91; RESP 16; TEMP 98.1
[2021-10-08] MEDS: SODIUM CHLORIDE 0.9% 1,000 ML IV SCH (14:27)
== END 2021-10-08 14:49 | DRG 641 ==
LOC: EC 11:33 → 3SCARD 15:38
PROVIDERS: ADMIT Internal Medicine; ATTEND Internal Medicine
DX: E86.0 Dehydration (principal); I69.351 Hemiplegia and hemiparesis following cerebral infarction affecting right dominant side; E78.5 Hyperlipidemia, unspecified; K59.09 Other constipation; R79.89 Other specified abnormal findings of blood chemistry; E55.9 Vitamin D deficiency, unspecified; M85.88 Other specified disorders of bone density and structure, other site; M62.81 Muscle weakness (generalized); F03.90 Unspecified dementia, unspecified severity, without behavioral disturbance, psychotic disturbance, mood disturbance, and anxiety; Z20.822 Contact with and (suspected) exposure to COVID-19; R29.6 Repeated falls; L85.3 Xerosis cutis; M81.0 Age-related osteoporosis without current pathological fracture; Z87.891 Personal history of nicotine dependence; Z91.81 History of falling; Z88.8 Allergy status to other drugs, medicaments and biological substances
CPT/HCPCS: 36415; 71046; 72170; 80048; 80053; 81003; 82550; 83735; 84484; 85025; 87636; 93005; 93308; 96360; 96361; 96374; 99285